=== PATIENT | female | born 1965 | race African-American/Black ===

== ENCOUNTER 2017-03-11 05:32 | Emergency (ER) | payer MEDICAID, OTHER ==
[~2017-03-11] VITALS: Ht 165.1 cm; Wt 72.6 kg
[2017-03-11] MEDS ORDERED: ALBUTEROL SULFATE 2.5 MG/3 ML NEBU NEB ONE (06:45)
[2017-03-11] MEDS ORDERED: IPRATROPIUM BROMIDE 0.5 MG/2.5 ML NEBU NEB ONE (06:45)
[2017-03-11] MEDS ORDERED: IPRATROPIUM BROMIDE 0.5 MG/2.5 ML NEBU ONE (07:11)
[2017-03-11] MEDS ORDERED: ALBUTEROL SULFATE 2.5 MG/ 0.5 ML NEBU ONE (07:12)
--- NOTE | 2017-03-11 07:40 | NUR ---
Patient discharged to home in stable conditon. Written and verbal after care instructions given. Patient verbalizes understanding of instructions.pt walks in steady gait, no resp distress.ra 99%
[2017-03-11 07:42] VITALS: BP 124/79
== END 2017-03-11 07:47 | disposition home or self-care (01) ==
LOC: ER 05:33
DX: J06.9 Acute upper respiratory infection, unspecified (principal); J45.909 Unspecified asthma, uncomplicated; F17.200 Nicotine dependence, unspecified, uncomplicated; Z85.3 Personal history of malignant neoplasm of breast
CPT/HCPCS: 71010; 94640; 99283; A4663; J3590

== ENCOUNTER 2017-04-13 23:32 | Emergency (ER) | payer OTHER ==
[~2017-04-13] VITALS: Ht 152.4 cm; Wt 68.0 kg
[2017-04-14] MEDS ORDERED: predniSONE 20 MG TABLET PO ONE (00:45)
[2017-04-14] MEDS ORDERED: IPRATROPIUM BROMIDE 0.5 MG/2.5 ML NEBU NEB ONE (00:45)
[2017-04-14] MEDS ORDERED: ALBUTEROL SULFATE 2.5 MG/ 0.5 ML NEBU NEB ONE (00:45)
--- NOTE | 2017-04-14 00:55 | NUR ---
Respiratory at bedside.
[2017-04-14] MEDS ORDERED: ALBUTEROL SULFATE 2.5 MG/ 0.5 ML NEBU ONE (01:07)
[2017-04-14] MEDS ORDERED: IPRATROPIUM BROMIDE 0.5 MG/2.5 ML NEBU ONE (01:08)
[2017-04-14] MEDS ORDERED: predniSONE 20 MG TABLET ONE (01:09)
--- NOTE | 2017-04-14 02:00 | NUR ---
Per md, patient stable for discharge. Written and verbal after care instructions given. Patient verbalizes understanding of instructions. Pt has steady gait, ambulated out of ER.
[2017-04-14 02:04] VITALS: BP 95/45
== END 2017-04-14 02:04 | disposition home or self-care (01) ==
LOC: ER 23:32
DX: J45.901 Unspecified asthma with (acute) exacerbation (principal); J06.9 Acute upper respiratory infection, unspecified; F17.200 Nicotine dependence, unspecified, uncomplicated
CPT/HCPCS: 71046; A4663; J3590; J7512

== ENCOUNTER 2017-05-01 22:41 | Emergency (ER) | payer OTHER ==
[~2017-05-01] VITALS: Ht 165.1 cm; Wt 68.0 kg
[2017-05-01] MEDS ORDERED: IPRATROPIUM BROMIDE 0.5 MG/2.5 ML NEBU NEB ONE (23:45)
[2017-05-01] MEDS ORDERED: ALBUTEROL SULFATE 2.5 MG/3 ML NEBU NEB ONE (23:45)
[2017-05-01] MEDS ORDERED: ALBUTEROL SULFATE 2.5 MG/3 ML NEBU ONE (23:47)
[2017-05-01] MEDS ORDERED: IPRATROPIUM BROMIDE 0.5 MG/2.5 ML NEBU ONE (23:47)
--- NOTE | 2017-05-01 23:49 | NUR ---
Patient ready for d/c post breathing treatment.
--- NOTE | 2017-05-01 23:49 | NUR ---
RT at bedside.
--- NOTE | 2017-05-02 00:05 | NUR ---
Patient discharged to home in stable conditon. Written and verbal after care instructions given. Patient verbalizes understanding of instructions. Ambulated from Er with stable gait. All belongings with patient. VSS.
[2017-05-02 00:07] VITALS: BP 131/78
== END 2017-05-02 00:07 | disposition home or self-care (01) ==
LOC: ER 22:41
DX: J45.909 Unspecified asthma, uncomplicated (principal); F17.200 Nicotine dependence, unspecified, uncomplicated
CPT/HCPCS: A4663; J3590